=== PATIENT | female | born 2000 | race Hispanic/Latino ===

== ENCOUNTER 2021-01-16 10:43 | Emergency (ER) | payer OTHER ==
[~2021-01-16] VITALS: Ht 157.5 cm; Wt 72.6 kg
[2021-01-16] MEDS ORDERED: ACETAMINOPHEN 325 MG TAB ONE (10:56)
[2021-01-16] MEDS ORDERED: IBUPROFEN 400 MG TAB ONE (10:56)
[2021-01-16] MEDS ORDERED: ACETAMINOPHEN 325 MG TAB PO ONE (11:15)
[2021-01-16] MEDS ORDERED: IBUPROFEN 400 MG TAB PO ONE (11:15)
== END 2021-01-16 12:12 | disposition home or self-care (01) ==
LOC: ER 11:43
DX: J02.9 Acute pharyngitis, unspecified (principal); R05 Cough; R51.9 Headache, unspecified
CPT/HCPCS: 83518; 87070; 99283